=== PATIENT | female | born 2000 | race Caucasian/White ===

== ENCOUNTER 2020-11-02 18:41 | Outpatient (REF) | payer BC, SELFPAY ==
[2020-11-02 20:14] LABS: CREATININE 0.7 mg/dL (0.55-1.02); TSH 2.22 uIU/mL (0.36-3.74)
== END 2020-11-02 18:42 | disposition home or self-care (01) ==
LOC: NCHCN 18:41
PROVIDERS: PCP Internal Medicine; Visit Provider Internal Medicine
DX: F31.9 Bipolar disorder, unspecified (principal)
CPT/HCPCS: 82565; 84443

== ENCOUNTER 2021-02-08 10:43 | Outpatient (REF) | payer BC, SELFPAY ==
[2021-02-08 19:40] LABS: Anion Gap 8.8 mmol/L (3-11); BUN 11 mg/dL (7-18); CO2 29.2 mmol/L (21.0-32.0); CREATININE 0.8 mg/dL (0.55-1.02); Calcium 8.8 mg/dL (8.5-10.1); Calculated LDL 131 mg/dL (<100); Chloride 105 mmol/L (98-107); Cholesterol 215 mg/dL (<200); Glucose 79 mg/dL (74-106); HDL Cholesterol 69 mg/dL (40-60); Potassium 4.3 mmol/L (3.5-5.1); Sodium 143 mmol/L (136-145); Triglyceride 78 mg/dL (<150)
== END 2021-02-08 10:44 | disposition home or self-care (01) ==
LOC: NCHCN 10:43
PROVIDERS: PCP Internal Medicine; Visit Provider Physician Assistant
DX: Z13.220 Encounter for screening for lipoid disorders (principal); Z83.3 Family history of diabetes mellitus
CPT/HCPCS: 80048; 80061

== ENCOUNTER 2022-03-14 16:58 | Outpatient (REF) | payer MEDICAID, SELFPAY ==
[2022-03-14 19:13] LABS: HCT 40.8 % (36.0-46.0); HGB 13.3 g/dL (11.2-15.7); MCHC 32.6 % (32.0-36.0); MCV 89 fL (80-95); MPV 9.2 fL (8.0-11.0); Platelet Count 281 10^3/uL (130-400); RBC 4.59 10^6/uL (3.93-5.22); RDW 12.5 % (11.7-14.6); RDW-SD 40.8 fL; WBC 7.88 10^3/uL (4.4-10.8)
[2022-03-14 19:47] LABS: TSH 2.76 uIU/mL (0.36-3.74)
[2022-03-17 10:51] LABS: HIV-1/2 Ag & Ab Screen Negative (Negative)
== END 2022-03-14 16:59 | disposition home or self-care (01) ==
LOC: NCHCN 16:58
PROVIDERS: PCP Internal Medicine; Visit Provider Internal Medicine
DX: R53.83 Other fatigue (principal); Z11.4 Encounter for screening for human immunodeficiency virus [HIV]
CPT/HCPCS: 85027; 87389; 84443

== ENCOUNTER 2023-03-27 17:36 | Outpatient (REF) | payer MEDICAID, SELFPAY ==
[2023-03-27 19:17] LABS: Abs Immature Grans 0.09 10^3/uL (0.0-0.06); Absolute Basophil Count 0.05 10^3/uL (0.0-0.2); Absolute Eosinophil Count 0.17 10^3/uL (0.0-0.7); Absolute Lymphocyte Count 2.12 10^3/uL (1.2-3.4); Absolute Monocyte Count 0.44 10^3/uL (0.1-0.8); Absolute Neutrophil Count 4.73 10^3/uL (1.2-6.7); Basophils % 0.7; Eosinophils % 2.2; HCT 38.2 % (36.0-46.0); HGB 13.1 g/dL (11.2-15.7); Immature Grans % 1.2; Lymphocytes % 27.9; MCH 29.4 pg (27.0-33.0); MCHC 34.3 % (32.0-36.0); MCV 86 fL (80-95); MPV 9.5 fL (8.0-11.0); Monocytes % 5.8; Neutrophils % 62.2; Platelet Count 297 10^3/uL (130-400); RBC 4.45 10^6/uL (3.93-5.22); RDW 11.9 % (11.7-14.6); RDW-SD 37.1 fL
[2023-03-27 19:31] LABS: TSH 1.43 uIU/mL (0.36-3.74)
== END 2023-03-27 17:37 | disposition home or self-care (01) ==
LOC: NCHCN 17:36
PROVIDERS: PCP Internal Medicine; Visit Provider Internal Medicine
DX: R53.83 Other fatigue (principal)
CPT/HCPCS: 84443; 85025